=== PATIENT | male | born 1965 | race American Indian/Alaskan Native ===

== ENCOUNTER 2016-12-23 16:22 | Emergency (ER) | payer SELFPAY ==
[2016-12-23 17:18] LABS: Basophils % (Auto) 0.9 % (0.0-1.8); Eosinophils % (Auto) 2.5 % (0.0-4.3); Hematocrit 45.1 % (35.5-45.6); Hemoglobin 14.9 gm/dl (11.8-15.2); Mean Corpuscular HGB Conc 33 % (32-34); Mean Corpuscular Hemoglobin 29 pg (28-32); Mean Corpuscular Volume 88 fl (84-94); Platelet Count 205 K/mm3 (140-440); Red Blood Count 5.11 M/mm3 (3.65-5.03); Red Cell Distribution Width 13.9 % (13.2-15.2); White Blood Count 4.8 K/mm3 (4.5-11.0)
[2016-12-23 17:40] LABS: BUN/Creatinine Ratio 7; Blood Urea Nitrogen 8 mg/dL (9-20); Calcium 8.5 mg/dL (8.4-10.2); Carbon Dioxide 26 mmol/L (22-30); Glucose 138 mg/dL (75-100)
[2016-12-23 17:41] LABS: Anion Gap 16 mmol/L; Chloride 105.9 mmol/L (98-107); Potassium 4.3 mmol/L (3.6-5.0); Sodium 144 mmol/L (137-145)
[2016-12-24] MEDS ORDERED: ZITHROMAX PO ONE (04:30)
[2016-12-24] MEDS ORDERED: ROCEPHIN IM ONE (04:30)
[2016-12-24] MEDS ORDERED: XYLOCAINE 1% MPF 5 mL INFILTRATI ONE (04:30)
[2016-12-24] MEDS ORDERED: ZITHROMAX ONE ×2 (04:41→04:46)
[2016-12-24] MEDS ORDERED: ROCEPHIN ONE (04:41)
[2016-12-24] MEDS ORDERED: XYLOCAINE 1% 20 mL ONE (04:42)
[2016-12-24 06:46] VITALS: BP 120/72
== END 2016-12-24 06:40 | disposition home or self-care (01) ==
LOC: ED 16:22
DX: R36.9 Urethral discharge, unspecified (principal); R07.9 Chest pain, unspecified
CPT/HCPCS: 36415; 80048; 84484; 85025; 87591; 93005; 93010; 96372; 99284; J0696